=== PATIENT | female | born 1945 ===

== ENCOUNTER 2018-10-18 12:27 | Outpatient (CLI) | payer OTHER | END 2018-10-18 12:39 | disposition home or self-care (01) | LOC: MAMO-SONO 12:27 → NUCLEAR 14:00 | DX: Z12.31 Encounter for screening mammogram for malignant neoplasm of breast (principal); Z87.898 Personal history of other specified conditions; N64.89 Other specified disorders of breast ==

== ENCOUNTER 2018-10-18 13:53 | Outpatient (CLI) | payer OTHER | END 2018-10-18 13:56 | disposition home or self-care (01) | LOC: NUCLEAR 13:53 | DX: M81.0 Age-related osteoporosis without current pathological fracture (principal) ==

== ENCOUNTER 2020-11-14 12:14 | Outpatient (CLI) | payer OTHER ==
[~2020-11-14 12:14] MED LIST: VOLTAREN-XR100 MG PO
== END 2020-11-14 12:17 | disposition home or self-care (01) ==
LOC: RAD 12:14
PROVIDERS: ATTEND Physical Medicine & Rehabilitation
DX: M75.52 Bursitis of left shoulder (principal); M79.672 Pain in left foot; M54.41 Lumbago with sciatica, right side; M79.671 Pain in right foot

== ENCOUNTER → 2021-07-09 14:17 | Outpatient (CLI) | payer OTHER | END | disposition home or self-care (01) | LOC: NUCLEAR 06-30 14:30 | PROVIDERS: ATTEND Family Medicine | DX: M81.0 Age-related osteoporosis without current pathological fracture (principal); M85.89 Other specified disorders of bone density and structure, multiple sites ==

== ENCOUNTER → 2024-06-07 14:07 | Outpatient (CLI) | payer OTHER ==
[2024-06-07 15:26] LABS: CREATININE SERUM 1.05 mg/dL (0.55-1.02)
== END | disposition home or self-care (01) ==
LOC: LAB 14:07
PROVIDERS: ATTEND Radiology Diagnostic Radiology
DX: D25.9 Leiomyoma of uterus, unspecified (principal)

== ENCOUNTER → 2024-06-08 | Outpatient (CLI) | payer OTHER | END | disposition home or self-care (01) | LOC: MRI 12:47 | PROVIDERS: ATTEND Obstetrics & Gynecology | DX: D25.9 Leiomyoma of uterus, unspecified (principal) | CPT/HCPCS: 72197; Q9965 ==

== ENCOUNTER 2024-07-17 11:53 | Outpatient (CLI) | payer OTHER | END 2024-07-17 12:02 | disposition home or self-care (01) | LOC: MRI 11:53 | DX: R41.0 Disorientation, unspecified (principal); R41.3 Other amnesia; G40.209 Localization-related (focal) (partial) symptomatic epilepsy and epileptic syndromes with complex partial seizures, not intractable, without status epilepticus | CPT/HCPCS: 70551 ==

== ENCOUNTER 2024-12-13 15:02 | Outpatient (CLI) | payer OTHER | END 2024-12-13 15:09 | disposition home or self-care (01) | LOC: TOM 15:02 | PROVIDERS: ATTEND Internal Medicine Pulmonary Disease | DX: R91.1 Solitary pulmonary nodule (principal); J44.9 Chronic obstructive pulmonary disease, unspecified; Z87.891 Personal history of nicotine dependence ==